=== PATIENT | male | born 1965 | race Caucasian/White ===

== ENCOUNTER → 2023-11-21 08:01 | Outpatient (REF) | payer BC, SELFPAY | LOC: DHCBS HW 08:01 | PROVIDERS: ATTENDING PHYSICIAN Physician Assistant; FAMILY PHYSICIAN Family Medicine | DX: R07.9 Chest pain, unspecified (principal); Z82.49 Family history of ischemic heart disease and other diseases of the circulatory system | CPT/HCPCS: 93306 ==

== ENCOUNTER → 2023-11-29 07:30 | Outpatient (REF) | payer BC, SELFPAY | LOC: RCS 07:30 | PROVIDERS: ATTENDING PHYSICIAN Physician Assistant; FAMILY PHYSICIAN Family Medicine | DX: R07.9 Chest pain, unspecified (principal); Z82.49 Family history of ischemic heart disease and other diseases of the circulatory system; I10 Essential (primary) hypertension | CPT/HCPCS: 93017 ==